=== PATIENT | female | born 1975 | race Caucasian/White ===

== ENCOUNTER → 2021-05-21 15:18 | Outpatient (BNVA) | payer SELFPAY | PROVIDERS: Visit Provider Nurse Practitioner Family | DX: R73.9 Hyperglycemia, unspecified (principal); F41.9 Anxiety disorder, unspecified; F32.9 Major depressive disorder, single episode, unspecified; R53.83 Other fatigue | CPT/HCPCS: 36416; 82962 ==

== ENCOUNTER → 2021-05-24 10:05 | Outpatient (BNVA) | payer SELFPAY | PROVIDERS: Visit Provider Nurse Practitioner Family | DX: R73.9 Hyperglycemia, unspecified (principal) | CPT/HCPCS: 80053; 80061; 82306; 82607; 83036; 84443; 85025 ==

== ENCOUNTER 2023-06-22 16:05 | Inpatient (IN) | payer MEDICAID, SELFPAY ==
[2023-06-22 16:08] VITALS: BP 119/87; PULSE 116; O2SAT 93
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
--- NOTE | 2023-06-22 16:21 | ECG_ITS ---
[facility] Test Date: 2023-06-22 Pat Name: Amie Salas Department: Room: Gender: Female Supervisor [employer]: : 1975 Requested By: Jorge Rankin Order Number: [id number] Perez MD: Keanu Mccarthy M.D. Measurements Intervals [place] Rate: 103 P: 76 CO: 127 QRS: 68 QRSD: 85 T: 82 QT: 352 QTc: 462 Interpretive Statements SINUS TACHYCARDIA No previous ECG available for comparison Electronically Signed On 06-22-2023 16:43:03 CDT by Keanu Mccarthy M.D. [id number]
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
[2023-06-22 16:40] LABS: Basophils # 0.1 10^3/uL (0.0-0.1); Basophils % 0.4 %; Eosinophils % 0.1 %; Hematocrit 35.8 % (36-47); Lymphocytes # 2.3 10^3/uL (0.8-4.8); Lymphocytes % 15.6 %; Mean Corpuscular HGB Conc 34.1 g/dL (30-55); Mean Corpuscular Hemoglobin 31.8 pg (27-33); Mean Corpuscular Volume 93.2 fl (85-98); Mean Platelet Volume 9.2 fL (7.4-10.4); Monocytes # 0.9 10^3/uL (0.2-0.9); Neutrophils # 11.34 10^3/uL (1.8-7.7); Neutrophils % 76.2 %; Nucleated Red Blood Cells % 0 %; Platelet Count 413 10^3/cmm (157-399); Red Blood Count 3.84 10^6/uL (3.85-5.65); Red Cell Distribution Width 13.4 % (12.1-15.1); White Blood Count 14.91 10^3/uL (3.29-11.43)
[2023-06-22 16:56] VITALS: BP 119/87
[2023-06-22 17:00] LABS: Alanine Aminotransferase 21 U/L (0-33); Albumin Level 4.9 g/dL (3.5-5.2); Alkaline Phosphatase 65 U/L (35-105); Aspartate Amino Transferase 38 U/L (0-32); Blood Urea Nitrogen 12 mg/dL (6-20); Calcium 9.2 mg/dL (8.5-10.5); Carbon Dioxide 17 mmol/L (22-29); Chloride 99 mmol/L (98-107); Globulin 3.3 g/dL (1.3-4.6); Glomerular Filtration Rate 77.2 mL/min (90-130); Glucose 188 mg/dL (65-115); Osmolality Calculated 287 mOsm/kg (285-295); Sodium 136 mmol/L (136-145); Total Bilirubin 0.6 mg/dL (0.15-1.2); Total Protein 8.2 g/dL (6.6-8.7)
[2023-06-22 17:03] LABS: Acetaminophen < 5.0 ug/mL (10-30); Alcohol Level < 10 mg/dL (0-10); Salicylate < 0.3 mg/dL (3-10)
[2023-06-22 17:33] LABS: SARS Covid-2 Antigen negative (Negative)
[2023-06-22 17:41] LABS: Bilirubin Urine Neg (Negative); Blood Urine 2+ (Negative); Glucose Urine UA Norm (Normal); HCG Qualitative Urine. Negative (Negative); Ketones Urine 1+ (Negative); Leukocyte Esterase Urine Negative (Negative); Nitrate Urine Negative (Negative); Protein Urine 1+ (Negative); Specific Gravity, Urine 1.025 (1.005-1.030); Urine Appearance SL Hazy (CLEAR); Urine Color Yellow (Yellow); Urobilinogen Urine Norm (Negative); pH Urine 5 (5-7)
[2023-06-22 17:42] LABS: Add Urine Microscopic? YES
[2023-06-22] MEDS: acetaminophen 325 mg Tablet 650 MG PO (17:46)
[2023-06-22] MEDS: ketorolac 30 mg/mL INJ IVP (17:46)
[2023-06-22 17:50] LABS: Amphetamines Screen Urine Positive (Negative); Barbiturates Screen Urine Negative (Negative); Benzodiazepines Screen Urine Negative (Negative); Cocaine Screen Urine Negative (Negative); Opiate Screen Urine Negative (Negative); PCP Screen Urine Negative (Negative); THC Screen Urine Negative (Negative)
[2023-06-22 18:00] LABS: RBC Urine 0-4 /hpf (0-2); WBC Urine 0-4 /hpf (0-5)
[2023-06-22 18:01] LABS: Add Urine Culture? No; Amorphous Sediment Urine TRACE /hpf; Bacteria Urine 1+ /hpf; Fine Granular Casts Urine 15-25 /lpf; Mucus Urine 2+ /hpf
[2023-06-22] MEDS: orphenadrine 30 mg/mL Inj 2 mL IVP (18:12)
[2023-06-22 18:18] VITALS: BP 116/75; PULSE 103; RESP 18; O2SAT 95
[2023-06-22 19:20] VITALS: BP 101/61; PULSE 77; RESP 18; TEMP 36.6; O2SAT 95
[2023-06-22 20:02] VITALS: BP 101/61; PULSE 77; RESP 19; TEMP 36.6; O2SAT 95
--- NOTE | 2023-06-22 20:14 | PC.NURSE ---
Spoke w/ER nurse regarding patients compression fx at T11 and T12 and pain management prior to transfer to this floor as instructed by accepting physician Dr. Zuleta. This nurse was informed that the patient was no longer in pain, and the ER physician was not going to further address the patients pain management and she was ok after receiving APAP, torodal, and norflex in the ER during treatment on that unit. Dr. Zuleta informed of the patients c/o pain to back shooting, stabbing, throbbing w/muscle spasms rated 8/10 w/o proper pain management ordered for the patient. Informed the patient that this nurse would contact the physician regarding pain s/sx, as it is inhibiting her ability to ambulate, sit, and lie in bed. Physician to order consult from hospitalist for pain management.
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
[2023-06-22] MEDS: ibuprofen 800 mg tablet PO (20:38)
--- NOTE | 2023-06-22 20:53 | PC.NURSE ---
Pts jimmy called unit asking if we recorded / monitored the phonecalls pts make. I told him that we can see them by the bench on the phone but as far as listening in or recording we do not do that. He was very upset with that fact. He then went on to say that the pt needed to be put on a 72 hour hold or for longer and that she should not be voluntary. I tried to explain to him that she is infact voluntary upon admission and she will stay overnight and then in the morning the doctor will be in, and will assess the pt and he will make the decisions about her stay. He then went on to state that if she leaves tomorrow or anytime soon she will end up killing herself and then he will reading professor up and gisele the shit out of us . I explained to him that i can make a note of him informing us of the need for her to be here, and i can take his number down. He then gave me his number and hung up the phone. His phone number is in pts chart.
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
[2023-06-22] MEDS: cyclobenzaprine 10 mg Tablet PO (22:04)
[2023-06-22] MEDS: HYDROcodone-acetaminophen 5-325 mg Tablet 1 TAB PO (22:05)
[2023-06-23 06:00] VITALS: BP 95/58; PULSE 85; RESP 16; TEMP 36.9; O2SAT 97
[2023-06-23] MEDS: HYDROcodone-acetaminophen 5-325 mg Tablet 1 TAB PO ×2 (07:48→14:00)
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
[2023-06-23] MEDS: cyclobenzaprine 10 mg Tablet PO ×2 (13:16→19:59)
[2023-06-23 14:00] VITALS: BP 108/67; PULSE 87; RESP 16; TEMP 36.8; O2SAT 95
[2023-06-23] MEDS: ibuprofen 800 mg tablet PO (15:42)
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
--- NOTE | 2023-06-23 15:55 | XRR_ITS ---
PROCEDURE INFORMATION: Exam: XR Chest Exam date and time: 06/23/2023 4:18 PM Age: 48 years old Clinical indication: Pain; Chest pressure; Additional info: Chest trauma TECHNIQUE: Imaging protocol: Radiologic exam of the chest. Views: 1 view. COMPARISON: CT thoracic spin wo con* [id number] 06/23/2023 4:09 PM FINDINGS: Lungs: Unremarkable. No consolidation. Pleural spaces: Unremarkable. No pleural effusion. No pneumothorax. Heart/Mediastinum: Unremarkable. No cardiomegaly. Bones/joints: Unremarkable. XR/XR chest 1V [id number] IMPRESSION: No acute findings.
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
[2023-06-23] MEDS: acetaminophen 500 mg Tablet PO ×2 (16:52→20:59)
[2023-06-23] MEDS: ketorolac 10 mg Tablet PO ×2 (16:52→23:59)
--- NOTE | 2023-06-23 16:52 | PM.MISC ---
Miscellaneous Note Purpose of Documentation: Update in patient care Note: CT Thoracic Spine show evidence of acute fractures of T11 and T2, otherwise trauma workup is negative. Isolated thoracic spine injuries will require orthopedic spine evaluation. -No general surgery intervention is indicated -Please obtain orthopedic surgery consultation for management of spine fractures -Case discussed with Primary team.
[2023-06-23 20:07] VITALS: BP 85/52; PULSE 76; RESP 16; TEMP 36.4; O2SAT 96
[2023-06-24] VITALS (7 sets, daily range): BP systolic 90–103; BP diastolic 56–66; PULSE 66–75; RESP 16–17; TEMP 36.6–36.8; O2SAT 90–95
[2023-06-24] MEDS: oxyCODONE 5 mg IR Tab/Cap 10 MG PO ×2 (03:58→13:49)
[2023-06-24] MEDS: OLANZapine 5 mg ODT PO (05:31)
[2023-06-24] MEDS: acetaminophen 500 mg Tablet PO ×4 (05:31→22:07)
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
[2023-06-24] MEDS: ketorolac 10 mg Tablet PO ×2 (09:10→17:41)
[2023-06-24] MEDS: fluoxetine 20 mg Capsule PO (09:11)
[2023-06-24] MEDS: cyclobenzaprine 10 mg Tablet PO ×3 (09:11→22:07)
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
[2023-06-24] MEDS: HYDROmorphone 1 mg/mL INJ 1 mL 0.5 MG IVP (18:06)
[2023-06-24] MEDS: dexamethasone 4 mg/mL INJ IVP ×2 (18:07→22:48)
[2023-06-25] VITALS (17 sets, daily range): BP systolic 95–129; BP diastolic 59–83; PULSE 67–98; RESP 13–23; TEMP 36.3–36.9; O2SAT 90–100
[2023-06-25] MEDS: ketorolac 10 mg Tablet PO (00:52)
[2023-06-25] MEDS: dexamethasone 4 mg/mL INJ IVP ×3 (04:52→23:10)
[2023-06-25 05:02] LABS: Basophils % 0.1 %; Hematocrit 34.7 % (36-47); Lymphocytes # 0.6 10^3/uL (0.8-4.8); Lymphocytes % 7.8 %; Mean Corpuscular HGB Conc 33.1 g/dL (30-55); Mean Corpuscular Hemoglobin 31.7 pg (27-33); Mean Corpuscular Volume 95.6 fl (85-98); Mean Platelet Volume 8.5 fL (7.4-10.4); Monocytes # 0.2 10^3/uL (0.2-0.9); Monocytes % 1.8 %; Neutrophils # 7.36 10^3/uL (1.8-7.7); Neutrophils % 89.9 %; Nucleated Red Blood Cells % 0 %; Platelet Count 312 10^3/cmm (157-399); Red Blood Count 3.63 10^6/uL (3.85-5.65); Red Cell Distribution Width 12.6 % (12.1-15.1); White Blood Count 8.19 10^3/uL (3.29-11.43)
[2023-06-25 05:28] LABS: Anion Gap 15.3 (5-19); Blood Urea Nitrogen 9 mg/dL (6-20); Calcium 8.8 mg/dL (8.5-10.5); Carbon Dioxide 23 mmol/L (22-29); Chloride 102 mmol/L (98-107); Glomerular Filtration Rate 171.8 mL/min (90-130); Glucose 149 mg/dL (65-115); Osmolality Calculated 283 mOsm/kg (285-295); Potassium 4.3 mmol/L (3.5-5.1); Sodium 136 mmol/L (136-145)
[2023-06-25] MEDS: acetaminophen 500 mg Tablet PO (05:34)
--- NOTE | 2023-06-25 07:23 | ANES.PREANE2 ---
Pre-Anesthetic Assessment Height/Weight: Height 1.63 m Weight 63.616 kg Temp Pulse Resp BP Pulse Ox O2 Del Method 98.2 F 76 17 110/71 96 Room Air 06/25/23 03:51 06/25/23 03:51 06/25/23 03:51 06/25/23 03:51 06/25/23 03:51 06/25/23 03:51 Operation Date: 06/25/23 08:30 Proposed Procedures p Thoracic Fusion T8-L2(Not Applicable) - Rolando Solomon, DO Familial anesthetic complications: None Was Beta Darrell taken within 24 hours: N/A Was Clonidine taken within 24 hours: N/A Last intake: Intake Last Liquid Date 06/24/23 Last Liquid Time 23:45 Last Solid Date 06/24/23 Last Solid Time 17:00 Social Alcohol and Tobacco methamphetamines Exam alert, oriented x 3, clear to auscultation bilaterally and regular rate & rhythm Airway Mallampati: Class I Dentition: chipped (2 ) and other (missing) Anesthetic Plan ASA status: 2 Anesthesia: General Risk of > 500 ml blood loss (7ml/kg in children): No Medications/Allergies Home Medications Medication Instructions Recorded Confirmed Last Taken Type buspirone 10 mg tablet See Rx Instructions .Route 05/06/22 06/22/23 Unknown Rx .COMPLEX #90 tabs trazodone 150 mg tablet 150 mg PO .qhs #90 tabs 07/13/22 06/22/23 Unknown Rx Allergies Allergy/AdvReac Type Severity Reaction Status Date / Time No Known Allergies Allergy Verified 06/22/23 16:18 Current Medications Generic Name Dose Route Start Last Admin Trade Name Harini PRN Reason Stop Dose Admin Acetaminophen 500 mg 06/23/23 16:00 06/25/23 05:34 Acetaminophen 500 Mg Tablet PO 500 mg Q6H MARÍA Administration Cyclobenzaprine HCl 10 mg 06/23/23 21:00 06/24/23 22:07 Cyclobenzaprine 10 Mg Tablet PO 10 mg TID MARÍA Administration Dexamethasone 4 mg 06/24/23 17:15 06/25/23 04:52 Dexamethasone 4 Mg/Ml Inj IVP 4 mg Q6H MARÍA Administration Fluoxetine HCl 20 mg 06/24/23 09:00 06/24/23 09:11 Fluoxetine 20 Mg Capsule PO 20 mg DAILY MARÍA Administration Hydromorphone HCl 0.5 mg 06/24/23 17:43 06/24/23 18:06 Hydromorphone 1 Mg/Ml Inj 1 Ml IVP 0.5 mg Q6H PRN Administration SEVERE PAIN Ketorolac Tromethamine 10 mg 06/23/23 16:00 06/25/23 00:52 Ketorolac 10 Mg Tablet PO 06/27/23 16:00 10 mg Q8H MARÍA Administration PFSH Anesthesia Family History Mother Cancer Lung disease Hypertension Diabetes Psychiatric illness Father , Hep C Hypertension Social History Smoking and tobacco/nicotine status: current every day tobacco/nicotine user cigarettes Packs smoked per day: 0.5 Years cigarettes smoked: 30 Quit status (tobacco/nicotine): considering quitting Second hand smoke exposure: Yes Alcohol intake: current Alcohol intake frequency: 3 or more drinks per day Alcohol type: beer and hard liquor Substance/Drug Use: never Adopted: No Caregiver/support person: No Lives independently: Yes Household members: spouse and children Housing: House Marital status: Number of children: 4 Highest education level completed: Associate Degree: Academic Program service: No Current occupational status: unemployed Current occupational exposures/hazards: No Current gender identity: Female Nedra/Gnosticist: Unknown Special nedra needs: No Agree to transfusion: Yes Female Reproductive History Date of last menstrual period: 06/04/23 Data Anesthesia 06/25/23 04:48 06/25/23 04:48 Short CBC 06/25/23 Range/Units 04:48 WBC 8.19 (3.29-11.43) 10^3/uL Hgb 11.50 (11.27-16.99) g/dL Hct 34.7 L (36-47) % MCV 95.6 (85-98) fl Plt Count 312 (157-399) 10^3/cmm Neut % (Auto) 89.9 % Neut # (Auto) 7.36 (1.8-7.7) 10^3/uL BMP 06/25/23 04:48 Sodium 136 Potassium 4.3 Chloride 102 Carbon Dioxide 23 BUN 9 Creatinine 0.4 L Glucose 149 H Calcium 8.8 Cardiac Studies: No Data to Display
[2023-06-25] MEDS: ceFAZolin 2,000 MG in sodium chloride 0.9% (plus) 50 ML 100 MG IV ×2 (07:52→15:05)
--- NOTE | 2023-06-25 07:53 | PC.NURSE ---
Patient brought to preop and preped for procedure. Dr. Solomon here to review procedure with patient. No questions from patient. Nurse remained with patient during entire pre-op stay.
--- NOTE | 2023-06-25 08:00 | XR_ITS ---
WS: [id number] C-ARM RADIOGRAPHS THORACOLUMBAR JUNCTION.; 3 IMAGES HISTORY: OR PICS; T8-L2 FUSION COMPARISON: None available. Intraoperative imaging is provided by [facility] during surgery at the thoracolumbar junction. There is exten sive hardware overlying the thoracolumbar junction. IMPRESSION: Intraoperative imaging provided during thoracolumbar fusion.
[2023-06-25] MEDS: vancomycin 1,000 MG SDV 1000 MG INTRA-ARTI (08:38)
[2023-06-25] MEDS: lidocaine-epi 2% 20 mL INJ INJECTION (08:38)
[2023-06-25] MEDS: heparin, porcine 1,000 unit/mL INJ 10 mL 10000 UNIT INJECTION (08:39)
--- NOTE | 2023-06-25 09:45 | PC.NURSE ---
ACCESSED PT CHART D/T DR IRVING REQUESTING INFO ON HOW PT WAS TRANSFERRED TO NPU FLOOR/ MOBILITY ABILITY AT THE TIME.
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
--- NOTE | 2023-06-25 11:03 | P.OP_ITS ---
Operative Report Date of procedure: June 25, 2023 Pre-op diagnosis: T11-T12 fracture dislocation Post-op diagnosis: same Procedure done: 1. T8 - L2 posterior spine fusion 2. T8 - L2 Posterior spine instrumentation 3. T10/11 laminectomy with partial facetectomies 4. T11/12 laminectomiy with partial facetectomies 5. use of computernavigation/ stereotactic for spine 6. fracture reduction 7. Bone marrow aspirate from right iliac crest 8. use of autograft 9. use of allograft Surgeon: Rolando Solomon DO Estimated blood loss (mL): 350 Procedure: 1. T8 - L2 posterior spine fusion 2. T8 - L2 Posterior spine instrumentation 3. T10/11 laminectomy with partial facetectomies 4. T11/12 laminectomiy with partial facetectomies 5. use of computernavigation/ stereotactic for spine 6. fracture reduction 7. Bone marrow aspirate from right iliac crest 8. use of autograft 9. use of allograft Patient brought the operative suite after undergoing anesthesia placed in the prone position. All areas impingement well-padded. Prior to prepping patient had 3 position baselines post position baselines which were equivalent. Patient was then prepped and draped normal sterile fashion. Skin incision was made from T8 down to L2. Subperiosteal dissection was made out to the transverse processes from T8 down to L2. Next attension was brought to aspirin bone marrow aspirate from the right iliac crest. This was done using the regenerative bone marrow aspiration kit. Next attention was brought to attaching the fiducial for the computer navigation. This was done using a spinous process clamp. Once the fiducial was attached the C-arm was brought in samples were spent on the patient and the information from the computer navigation was then used to place pedicle screws using computer navigation later in the case. Was brought to placing the pedicle screws. This was done by using the gearshift probe followed by the pedicle feeler followed by placing the screw all using computer navigation. The screws were placed at T8-T9-T10 L1 and L2. The fracture levels were skipped. Once the screws were in place rods were then placed. The johnathan was slightly under bent and attached to the L1 and L2 screws first. The screws were then reduced the johnathan proximally. And then distracted. This was done bilateral this distraction maneuver allowed for reduction of the fracture. Once the rods were attached and torqued into position. Attention was then brought to doing the laminectomy at T10-11. This was done by using the high- speed bur curved curettes and curettes Yair. Once the lamina was taken down the ligamentum flavum was taken down from T10-T11. The medial aspect of facet joints were taken down. There was hematoma which was drained. Next tension was brought to the T11-12 level. Again laminectomy was done at T11 using the high-speed bur curved curettes and Kerrison rongeurs. Ligamentum flavum was taken down from T11-T12. And then the medial aspect of facet joints were taken down. Wounds were then irrigated. The lamina and transverse processes were decorticated the autograft and allograft were packed into the lateral gutters. Deep drain was placed. Vancomycin powder was placed. And the wound was closed in layered fashion with 0 Vicryl 2-0 Vicryl and Monocryl suture. Sterile dressings were applied patient was transferred to the PACU in stable condition.
--- NOTE | 2023-06-25 11:58 | PC.NURSE ---
Awake. Oral airway removed
--- NOTE | 2023-06-25 12:15 | ANE.PACU2 ---
Inpatient post-anesthesia follow up: Airway intact: Yes Vital signs: Temperature 98.2 F Pulse Rate 81 Respiratory Rate 16 Blood Pressure 95/59 Pulse Oximetry 93 Oxygen Delivery Me thod Room Air Oxygen Flow Rate 8 Fraction of Inspir ed Oxygen Hydration adequate: Yes Nausea and vomiting: No Pain level: 1 Mental status: Baseline
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
[2023-06-25] MEDS: lactated ringers 1,000 ML 90 ML IV ×2 (12:45→22:01)
[2023-06-25] MEDS: ketorolac 30 mg/mL INJ IVP (13:14)
[2023-06-25] MEDS: oxyCODONE 5 mg IR Tab/Cap 10 MG PO ×2 (13:50→18:17)
[2023-06-25] MEDS: ALPRAZolam 0.5 mg Tablet PO (13:51)
[2023-06-25] MEDS: cyclobenzaprine 10 mg Tablet PO ×2 (15:08→22:01)
[2023-06-25] MEDS: enoxaparin 40 mg/0.4 mL Syringe SUBCUT (17:05)
[2023-06-26] VITALS (10 sets, daily range): BP systolic 93–125; BP diastolic 56–77; PULSE 81–89; RESP 13–17; TEMP 36.8–37; O2SAT 91–94
[2023-06-26] MEDS: ceFAZolin 2,000 MG in sodium chloride 0.9% (plus) 50 ML 100 MG IV ×2 (00:35→08:55)
[2023-06-26] MEDS: oxyCODONE 5 mg IR Tab/Cap 10 MG PO ×3 (00:36→20:51)
[2023-06-26] MEDS: trazodone 50 mg Tablet PO ×2 (00:36→20:51)
[2023-06-26 03:14] LABS: Basophils % 0.1 %; Hematocrit 26.1 % (36-47); Lymphocytes % 8.3 %; Mean Corpuscular HGB Conc 31.8 g/dL (30-55); Mean Corpuscular Hemoglobin 31.2 pg (27-33); Mean Corpuscular Volume 98.1 fl (85-98); Mean Platelet Volume 9.2 fL (7.4-10.4); Monocytes # 0.7 10^3/uL (0.2-0.9); Monocytes % 5.8 %; Neutrophils # 10.09 10^3/uL (1.8-7.7); Neutrophils % 85.1 %; Nucleated Red Blood Cells % 0 %; Platelet Count 263 10^3/cmm (157-399); Red Blood Count 2.66 10^6/uL (3.85-5.65); White Blood Count 11.85 10^3/uL (3.29-11.43)
[2023-06-26 03:43] LABS: Anion Gap 13.3 (5-19); Blood Urea Nitrogen 8 mg/dL (6-20); Calcium 7.5 mg/dL (8.5-10.5); Carbon Dioxide 26 mmol/L (22-29); Chloride 105 mmol/L (98-107); Glomerular Filtration Rate 132.8 mL/min (90-130); Glucose 156 mg/dL (65-115); Osmolality Calculated 292 mOsm/kg (285-295); Potassium 4.3 mmol/L (3.5-5.1); Sodium 140 mmol/L (136-145)
[2023-06-26] MEDS: dexamethasone 4 mg/mL INJ IVP ×4 (05:35→22:08)
--- NOTE | 2023-06-26 06:41 | PM.PN ---
Subjective Subjective: POD 1 Patient resting comfortably. Mild back pain denies any leg pain. Denies shortness of breath, chest pain, headaches Vitals/I&O/Wt Last Vital Signs Temp 98.6 F 06/26/23 03:15 Pulse 81 06/26/23 03:15 Resp 13 06/26/23 05:13 BP 112/69 06/26/23 03:15 Pulse Ox 92 06/26/23 05:13 O2 Del Method Room Air 06/26/23 03:15 O2 Flow Rate 8 06/25/23 11:55 06/25/23 06/25/23 06/26/23 14:59 22:59 06:59 Intake Total 1850 / 1850 1124 / 2974 290 / 3264 Output Total 600 / 600 585 / 1185 635 / 1820 Balance 1250 / 1250 539 / 1789 -345 / 1444 Weight last 48 hrs Weight 140 lb 4 oz Physical Exam Narrative: Patient presents alert and oriented x3 with a good general appearance normal mood and affect. Normal coordination normal stability. Mild tenderness around the incisional site with the incision appear to be Clean and dry with Hemovac intact. No signs of erythema or drainage. No signs of infection. Patient denies any fevers or chills. 5/5 motor strength both lower extremities with negative straight leg raise bilaterally. Calves are supple no medial thigh tenderness. Pulses are 2+ at the dorsalis pedis and posterior tibial region. Good capillary refill throughout normal sensation light touch both lower extremities. Urinary Catheter Management: Herndon: Cath Placed During This Visit: yes Reason for Continuing Indwelling Catheter: Required Immobilization for Trauma or Surgery or Anesthesia Urinary Catheter Date of Insertion: 06/24/23 Urinary Catheter Time of Insertion: 16:35 Data 06/26/23 02:13 06/26/23 02:13 A&P Assessment and plan (1) S/P spinal fusion: Continue mobilizing with physical therapy. Continue incentive spirometry for pulmonary toilet. High risk of bleeding and will continue SCDs for DVT prophylaxis. Continue Hemovac drain until tomorrow. Discontinue Herndon catheter. Attestations Medical Necessity Statement*: Defer to medical team Coding Level of Care Code Acute Code for [facility] Fwd Diagnoses S/P spinal fusion Z98.1
[2023-06-26] MEDS: HYDROmorphone 1 mg/mL INJ 1 mL 0.5 MG IVP (08:55)
[2023-06-26] MEDS: lactated ringers 1,000 ML 90 ML IV ×2 (09:47→20:51)
[2023-06-26] MEDS: folic acid 1 mg Tablet PO (09:48)
[2023-06-26] MEDS: docusate sodium 100 mg Capsule PO (09:48)
[2023-06-26] MEDS: fluoxetine 20 mg Capsule PO (09:48)
[2023-06-26] MEDS: thiamine 100 mg Tablet PO (09:48)
[2023-06-26] MEDS: cyclobenzaprine 10 mg Tablet PO ×3 (09:48→20:51)
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
[2023-06-26] MEDS: ketorolac 30 mg/mL INJ IVP (15:10)
[2023-06-26] MEDS: enoxaparin 40 mg/0.4 mL Syringe SUBCUT (15:49)
[2023-06-27] VITALS (10 sets, daily range): BP systolic 106–130; BP diastolic 60–79; PULSE 70–83; RESP 15–18; TEMP 36.5–36.8; O2SAT 92–96
[2023-06-27] MEDS: oxyCODONE 5 mg IR Tab/Cap 10 MG PO ×2 (00:46→04:56)
[2023-06-27] MEDS: ALPRAZolam 0.5 mg Tablet PO ×2 (00:48→19:34)
[2023-06-27] MEDS: dexamethasone 4 mg/mL INJ IVP ×2 (04:56→12:09)
[2023-06-27 05:44] LABS: Basophils % 0.1 %; Hematocrit 24.6 % (36-47); Lymphocytes % 18.6 %; Mean Corpuscular HGB Conc 31.3 g/dL (30-55); Mean Corpuscular Hemoglobin 31.2 pg (27-33); Mean Corpuscular Volume 99.6 fl (85-98); Mean Platelet Volume 8.3 fL (7.4-10.4); Monocytes # 0.7 10^3/uL (0.2-0.9); Monocytes % 6.8 %; Neutrophils # 7.76 10^3/uL (1.8-7.7); Neutrophils % 73.6 %; Nucleated Red Blood Cells % 0 %; Platelet Count 234 10^3/cmm (157-399); Red Blood Count 2.47 10^6/uL (3.85-5.65); White Blood Count 10.54 10^3/uL (3.29-11.43)
[2023-06-27 06:04] LABS: Anion Gap 11.5 (5-19); Blood Urea Nitrogen 8 mg/dL (6-20); Calcium 8.1 mg/dL (8.5-10.5); Carbon Dioxide 27 mmol/L (22-29); Chloride 106 mmol/L (98-107); Glomerular Filtration Rate 171.8 mL/min (90-130); Glucose 128 mg/dL (65-115); Magnesium 2.1 mg/dL (1.7-2.3); Osmolality Calculated 290 mOsm/kg (285-295); Potassium 4.5 mmol/L (3.5-5.1); Sodium 140 mmol/L (136-145)
--- NOTE | 2023-06-27 07:20 | P.PN_ITS ---
Subjective Subjective: POD 2 Patient resting comfortably with no complaints. Vitals/I&O/Wt Last Vital Signs Temp 98.2 F 06/27/23 03:22 Pulse 77 06/27/23 03:22 Resp 16 06/27/23 04:56 BP 109/60 06/27/23 03:22 Pulse Ox 92 06/27/23 03:22 O2 Del Method Room Air 06/27/23 03:22 O2 Flow Rate 8 06/25/23 11:55 06/26/23 06/27/23 06/27/23 22:59 06:59 14:59 Intake Total 1236 / 3126 Output Total 1385 / 1385 525 / 1910 Balance -149 / 1741 -525 / 1216 Physical Exam Narrative: Patient presents alert and oriented x3 with a good general appearance normal mood and affect. Normal coordination normal stability. Mild tenderness around the incisional site with the incision appears to be clean and dry Hemovac intact. No signs of erythema or drainage. No signs of infection. Patient denies any fevers or chills. 5/5 motor strength both lower extremities with negative straight leg raise bilaterally. Calves are supple no medial thigh tenderness. Pulses are 2+ at the dorsalis pedis and posterior tibial region. Good capillary refill throughout normal sensation light touch both lower extremities. Urinary Catheter Management: Herndon: Cath Placed During This Visit: yes Reason for Continuing Indwelling Catheter: Required Immobilization for Trauma or Surgery or Anesthesia Urinary Catheter Date of Insertion: 06/24/23 Urinary Catheter Time of Insertion: 16:35 Data 06/27/23 05:37 06/27/23 05:37 A&P Assessment and plan (1) S/P spinal fusion: Discontinue Hemovac drain. Physical therapy to mobilize. social services specialist for placement. Okay from orthopedic standpoint for discharge when medically stable and cleared by psychiatry. Attestations Medical Necessity Statement*: Defer to medical and psychiatric team Coding Level of Care Code Acute Code for [facility] Fwd Diagnoses S/P spinal fusion Z98.1
[2023-06-27] MEDS: lactated ringers 1,000 ML 90 ML IV (08:34)
[2023-06-27] MEDS: thiamine 100 mg Tablet PO (08:34)
[2023-06-27] MEDS: docusate sodium 100 mg Capsule PO ×2 (08:34→17:22)
[2023-06-27] MEDS: fluoxetine 20 mg Capsule PO (08:34)
[2023-06-27] MEDS: folic acid 1 mg Tablet PO (08:34)
[2023-06-27] MEDS: cyclobenzaprine 10 mg Tablet PO ×3 (08:34→19:35)
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
--- NOTE | 2023-06-27 15:17 | PC.NURSE ---
At 1500 this nurse took out patients suture that was holding in hemovac drain. Once removed, hemovac was pulled. Incision site was covered with a sterile 2x2 and tape. Pt tolerated well.
[2023-06-27] MEDS: oxyCODONE 5 mg IR Tab/Cap PO ×2 (16:08→22:13)
[2023-06-27] MEDS: enoxaparin 40 mg/0.4 mL Syringe SUBCUT (17:22)
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
[2023-06-27] MEDS: trazodone 50 mg Tablet PO (19:34)
[2023-06-27] MEDS: ketorolac 30 mg/mL INJ IVP (21:17)
[2023-06-28] VITALS (9 sets, daily range): BP systolic 95–126; BP diastolic 58–78; PULSE 65–74; RESP 16–18; TEMP 36.5–37.3; O2SAT 90–96
[2023-06-28] MEDS: oxyCODONE 5 mg IR Tab/Cap PO ×4 (04:04→22:08)
[2023-06-28 05:42] LABS: Basophils % 0.2 %; Eosinophils % 0.3 %; Hematocrit 24.5 % (36-47); Lymphocytes # 5.1 10^3/uL (0.8-4.8); Lymphocytes % 42.6 %; Mean Corpuscular HGB Conc 31.4 g/dL (30-55); Mean Corpuscular Hemoglobin 31.4 pg (27-33); Mean Platelet Volume 8.8 fL (7.4-10.4); Monocytes % 8.2 %; Neutrophils # 5.74 10^3/uL (1.8-7.7); Neutrophils % 47.9 %; Nucleated Red Blood Cells % 0.2 %; Platelet Count 271 10^3/cmm (157-399); Red Blood Count 2.45 10^6/uL (3.85-5.65); Red Cell Distribution Width 12.7 % (12.1-15.1); White Blood Count 11.98 10^3/uL (3.29-11.43)
[2023-06-28] MEDS: docusate sodium 100 mg Capsule PO ×2 (08:30→18:16)
[2023-06-28] MEDS: thiamine 100 mg Tablet PO (08:30)
[2023-06-28] MEDS: cyclobenzaprine 10 mg Tablet PO ×3 (08:30→20:49)
[2023-06-28] MEDS: fluoxetine 20 mg Capsule PO (08:30)
[2023-06-28] MEDS: folic acid 1 mg Tablet PO (08:30)
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
--- NOTE | 2023-06-28 12:50 | PC.NURSE ---
This nurse gave report to JAJA Veronica in NPU via phone at [phone]. Transfer from Med Surg to NPU pending placement of medical bed in NPU per Glenys.
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
--- NOTE | 2023-06-28 15:46 | PC.NURSE ---
Pt transferred off med surg floor via wheelchair with nurse tech and security at 1548.
[2023-06-28] MEDS: acetaminophen 325 mg Tablet 650 MG PO (18:16)
[2023-06-28] MEDS: enoxaparin 40 mg/0.4 mL Syringe SUBCUT (18:26)
[2023-06-29 04:49] VITALS: RESP 14
[2023-06-29] MEDS: oxyCODONE 5 mg IR Tab/Cap PO ×3 (04:49→18:27)
[2023-06-29 06:00] VITALS: BP 107/71; PULSE 72; RESP 16; TEMP 36.7; O2SAT 93
[2023-06-29 07:24] LABS: Basophils # 0.1 10^3/uL (0.0-0.1); Basophils % 0.4 %; Eosinophils # 0.3 10^3/uL (0.0-0.8); Eosinophils % 2.2 %; Hematocrit 28.2 % (36-47); Lymphocytes # 4.3 10^3/uL (0.8-4.8); Mean Corpuscular HGB Conc 31.6 g/dL (30-55); Mean Corpuscular Hemoglobin 31.3 pg (27-33); Mean Corpuscular Volume 99.3 fl (85-98); Mean Platelet Volume 8.4 fL (7.4-10.4); Monocytes # 0.9 10^3/uL (0.2-0.9); Monocytes % 7.4 %; Neutrophils # 6.04 10^3/uL (1.8-7.7); Neutrophils % 52.2 %; Nucleated Red Blood Cells % 0.2 %; Platelet Count 317 10^3/cmm (157-399); Red Blood Count 2.84 10^6/uL (3.85-5.65); Red Cell Distribution Width 12.4 % (12.1-15.1); White Blood Count 11.58 10^3/uL (3.29-11.43)
[2023-06-29] MEDS: cyclobenzaprine 10 mg Tablet PO ×3 (08:42→20:02)
[2023-06-29] MEDS: docusate sodium 100 mg Capsule PO ×2 (08:42→17:01)
[2023-06-29] MEDS: fluoxetine 20 mg Capsule PO (08:42)
[2023-06-29] MEDS: thiamine 100 mg Tablet PO (08:42)
[2023-06-29] MEDS: folic acid 1 mg Tablet PO (08:42)
[2023-06-29 12:07] VITALS: RESP 18
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
[2023-06-29 14:00] VITALS: BP 106/73; PULSE 78; RESP 16; TEMP 36.7; O2SAT 95
[2023-06-29] MEDS: enoxaparin 40 mg/0.4 mL Syringe SUBCUT (17:01)
[2023-06-29 18:27] VITALS: RESP 18
--- NOTE | 2023-06-29 18:32 | PC.NURSE ---
This nurse contacted Dr. Solomon's office and left a voice message for his nurse, stating for them to contact us about a mutual patient, Amie Salas, about ordering a walker, pain meds, follow-up. This was around 1300. As of 1832, no return calls.
[2023-06-29 19:45] VITALS: BP 92/61; PULSE 73; RESP 13; TEMP 36.8; O2SAT 98
[2023-06-29] MEDS: trazodone 50 mg Tablet PO (20:02)
[2023-06-30 01:40] VITALS: RESP 18
[2023-06-30] MEDS: oxyCODONE 5 mg IR Tab/Cap PO ×2 (01:40→08:22)
[2023-06-30 06:00] VITALS: BP 100/72; PULSE 75; RESP 14; TEMP 36.8; O2SAT 96
[2023-06-30 08:22] VITALS: RESP 16
[2023-06-30] MEDS: ALPRAZolam 0.5 mg Tablet PO (08:22)
[2023-06-30] MEDS: folic acid 1 mg Tablet PO (08:22)
[2023-06-30] MEDS: docusate sodium 100 mg Capsule PO (08:23)
[2023-06-30] MEDS: fluoxetine 20 mg Capsule PO (08:23)
[2023-06-30] MEDS: thiamine 100 mg Tablet PO (08:23)
[2023-06-30] MEDS: cyclobenzaprine 10 mg Tablet PO (08:23)
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
[2023-06-30 12:48] VITALS: RESP 16
[2023-06-30 12:57] VITALS: BP 82/56; PULSE 78; RESP 16; TEMP 36.6; O2SAT 95
[2023-06-30 13:05] VITALS: BP 96/54
--- NOTE | 2023-06-30 13:17 | PC.NURSE ---
written discharge instruction discussed and left with patient. pt stated understanding and compliance. pt discharge prescription delivered from outpatient pharmacy given to patient.
== END 2023-06-30 14:38 | disposition home or self-care (01) | DRG 460 ==
LOC: ER 18:04 → NP 18:07 → MEDSURG 06-24 15:43 → NP 06-28 15:58
PROVIDERS: Internal Medicine; Orthopaedic Surgery; Admitting Provider Psychiatry & Neurology Psychiatry; Emergency Provider Internal Medicine; PCP Nurse Practitioner Family; Visit Provider Psychiatry & Neurology Psychiatry
PROC: 0RG707J Fusion of 2 to 7 Thoracic Vertebral Joints with Autologous Tissue Substitute, Posterior Approach, Anterior Column, Open Approach (ICD-10-PCS; principal; 2023-06-25 08:00)
DX: S22.088A Other fracture of T11-T12 vertebra, initial encounter for closed fracture (principal); F33.9 Major depressive disorder, recurrent, unspecified; R45.851 Suicidal ideations; F15.20 Other stimulant dependence, uncomplicated; V48.0XXA Car driver injured in noncollision transport accident in nontraffic accident, initial encounter; F43.10 Post-traumatic stress disorder, unspecified; F41.0 Panic disorder [episodic paroxysmal anxiety]; F17.210 Nicotine dependence, cigarettes, uncomplicated; F10.10 Alcohol abuse, uncomplicated; Z81.8 Family history of other mental and behavioral disorders; G47.00 Insomnia, unspecified; E53.8 Deficiency of other specified B group vitamins; E55.9 Vitamin D deficiency, unspecified
CPT/HCPCS: 36415; 51702; 71045; 72040; 72080; 72100; 72128; 72131; 72146; 72148; 72170; 74018; 80048; 80053; 80306; 80307; 81001; 81025; 83735; 85018; 85025; 87426; 93005; 96372; 96374; 96375; 97116; 97161; 97165; 97530; 99285; C1713; J0330; J0690; J1100; J1170; J1644; J1650; J1885; J2250; J2360; J2405; J2704; J3010; J3370; J3490; J7120

== ENCOUNTER → 2023-07-18 10:21 | Outpatient (BNVA) | payer MEDICAID, SELFPAY | PROVIDERS: PCP Nurse Practitioner Family; Visit Provider Physician Assistant | DX: Z98.1 Arthrodesis status (principal); Z47.89 Encounter for other orthopedic aftercare; F17.210 Nicotine dependence, cigarettes, uncomplicated | CPT/HCPCS: 72070; 72100 ==

== ENCOUNTER → 2023-09-26 09:33 | Outpatient (BNVA) | payer MEDICAID, SELFPAY | PROVIDERS: PCP Nurse Practitioner Family; Visit Provider Orthopaedic Surgery | DX: Z98.1 Arthrodesis status (principal); Z47.89 Encounter for other orthopedic aftercare | CPT/HCPCS: 72100 ==

== ENCOUNTER 2024-04-10 06:56 | Outpatient (CLI) | payer MEDICAID, SELFPAY ==
--- NOTE | 2024-04-10 07:15 | MR_ITS ---
WS: [id number] MRI LUMBAR SPINE NONCONTRAST TECHNIQUE: Sagittal T1, T2 and STIR imaging. Axial T1 and T2 imaging. CLINICAL INFORMATION: Z98.1 - Arthrodesis status COMPARISON: MRI 06/24/2023 FINDINGS: Postoperative changes are new since the prior MRI. Postoperative changes pedicle screw fixation T8-T1 0, L1, and L2. Chronic appearing compression fractures at T11 and T12 similar to previous. Anterior w edging worse at T11 appears stable. Mild chronic retropulsion at T11 appears stable. L1-L2: Normal. L2-L3: Mild annular bulging. Mild facet arthropathy. Spinal canal and foramen appear patent. L3-L4: Mild annular bulging. Mild facet arthropathy. Mild LEFT and no significant RIGHT foraminal lemuel rowing. Small LEFT foraminal protrusion impinges the exiting LEFT L3 nerve root. Mild facet arthropat hy. L4-L5: Slight grade 1 anterolisthesis. Mild disc bulging with mild central canal stenosis appears sli ghtly progressed compared to previous. Mild bilateral foraminal narrowing. Moderate facet arthropathy . Foraminal narrowing worse on the LEFT. L5-S1: Mild disc bulging with a tiny shallow RIGHT paracentral protrusion. Slight impingement on the traversing RIGHT S1 nerve root. Moderate facet arthropathy. Visualized pelvic bony structures: Normal. Paravertebral soft tissues: Normal. MR/MR lumbar spine wo con* [id number] IMPRESSION: 1. Postoperative changes pedicle screw fixation is new compared to the prior M RI with similar appearing compression fractures described above. 2. No acute appearing compression fractures. 3. Mild central canal stenosis L4-5 appears slightly progressed with slight an terolisthesis. Impingement upon the subarticular recess bilaterally. 4. Mild LEFT L4-5 foraminal narrowing. 5. Tiny shallow RIGHT paracentral protrusion L5-S1 slightly impinges the RIGHT S1 nerve root. 6. Small LEFT foraminal protrusion L3-4 slightly impinges the exiting LEFT L3 nerve root. This appears slightly progressed compared to previous. 7. Moderate facet arthropathy L4-L5 and L5-S1.
== END 2024-04-10 06:57 | disposition home or self-care (01) ==
LOC: RAD 06:56
PROVIDERS: PCP Nurse Practitioner Family; Visit Provider Orthopaedic Surgery
DX: Z98.1 Arthrodesis status (principal); M47.896 Other spondylosis, lumbar region; M99.63 Osseous and subluxation stenosis of intervertebral foramina of lumbar region; M47.898 Other spondylosis, sacral and sacrococcygeal region
CPT/HCPCS: 72148